=== PATIENT | male | born 2000 | race Caucasian/White ===

== ENCOUNTER 2022-09-25 01:51 | Emergency (ER) | payer MEDICAID, SELFPAY ==
[2022-09-25 01:59] VITALS: PULSE 88; RESP 16; TEMP 36.3; O2SAT 100; BMI 27.5
--- NOTE | 2022-09-25 02:00 | ED_ITS ---
HPI - General Adult General: Chief complaint: General Medical Stated complaint: G TUBE PROBLEMS Time Seen by Provider: 09/25/22 01:56 Source: family and EMS Mode of arrival: EMS Limitations: physical limitation History of Present Illness: 21-year-old male has a history of being bedbound he is nonverbal he depends on tube feedings he has a G-tube that per family they are transferring and it got caught and pulled out he seen at [facility] they do not have an NG tube I did place a Amaral in place and transferred here for G-tube placement no other complaints at this time Review of Systems General: Reports: ROS unobtainable due to mental status PFSH ED PFSH: Social History (Updated 09/25/22 @ 02:00 by Josie Del Rio MD) Substance/Drug Use: never Physical Exam Const: COMMON NORMALS: no acute distress; negative for patient oriented x3 HENMT: COMMON NORMALS: normocephalic HEAD & SCALP: normocephalic Eye: COMMON NORMALS: conjunctivae normal CONJUNCTIVA: Yes conjunctivae normal Neck/C-Spine: COMMON NORMALS: supple Chest: COMMONS NORMALS: normal inspection of the chest Resp: COMMON NORMALS: normal respiratory effort GI: OTHER: Amaral catheter in place at the G-tube site Extremity: COMMON NORMALS: normal to inspection Neuro: COMMON NORMALS: negative for patient oriented x3 Procedures Feeding Tube Replacement Type of Tube: gastrostomy Insertion Site Prior to Procedure: clean Tube Used for Reinsertion: other (g tube) Italian Tube Size (F): 20 Balloon size (mL): 10 Verification of Placement: KUB and gastrografin injection Tube Secured by: tape/dressing Patient Tolerated Procedure: well Course Vital Signs: Vital signs: Vital Signs Temperature 97.3 F L 09/25/22 01:59 Pulse Rate 76 09/25/22 02:05 Respiratory Rate 16 09/25/22 01:59 Blood Pressure 103/72 09/25/22 02:05 Pulse Oximetry 96 09/25/22 02:05 Oxygen Delivery Me thod Trach Collar 09/25/22 02:05 Oxygen Flow Rate 5 09/25/22 01:59 MDM - General Adult Medical Decision Making Patient presents here with dislodged G-tube I did place another G-tube without any difficulty. Patient tolerated well x-ray KUB shows that in place. He is stable for discharge. Discharge Plan Discharge Patient Disposition: Home Clinical Impression: Gastrojejunostomy tube dislodgement Discharge Orders: Discharge ED (Routine); Ordered 09/25/22 Ordered By: Josie Del Rio Discharge Diet: Advance as tolerated Discharge Activity: Resume usual activity Patient Instructions: Tube Feeding (DC) Coding Level of Care Code ED Gang Drill Operator for Leroy Talavera
[2022-09-25 02:05] VITALS: BP 103/72; PULSE 76; O2SAT 96
--- NOTE | 2022-09-25 02:06 | XRR_ITS ---
PROCEDURE INFORMATION: Exam: XR Abdomen Exam date and time: 09/25/2022 2:24 AM Age: 21 years old Clinical indication: Device placement; Gi device; Gastrostomy, other; Additional info: G tube placement, contrast TECHNIQUE: Imaging protocol: Radiologic exam of the abdomen. Views: Frontal supine view of the abdomen. 1 View. Other contrast: Oral, GASTROVIEW, 100; COMPARISON: No relevant prior studies available. FINDINGS: Tubes, catheters and devices: A gastrostomy tube projects on the stomach. Contrast material is present within the stomach and proximal small bowel. There is no evidence of leak. Gastrointestinal tract: No evidence of obstruction. Bones/joints: Unremarkable. XR/XR KUB [id number] IMPRESSION: Satisfactory position of the gastrostomy tube in the stomach with no evidence of leak.
[2022-09-25 03:29] VITALS: BP 112/73; PULSE 75; RESP 18; O2SAT 100
[2022-09-25] MEDS: diatrizoate meglumine 120 mL Sol PO (04:01)
--- NOTE | 2022-09-25 04:06 | PC.NURSE ---
JAZLYN ride scheduled to EMS for transport back home. Pts family notified that it will be 0800 before they arive. Trip # [id number].
[2022-09-25 07:30] VITALS: BP 108/77; PULSE 84; O2SAT 99
[2022-09-25 09:00] VITALS: BP 93/74; PULSE 90; O2SAT 98
[2022-09-25 09:34] VITALS: BP 104/66; PULSE 92; O2SAT 100
--- NOTE | 2022-09-29 14:53 | DCPLANNER ---
manager service desk called patient due to no primary care physician - case assistant spoke with patients father who stated that patient sees Rozina Joaquin at [facility].
== END 2022-09-25 09:36 | disposition home or self-care (01) ==
PROVIDERS: Emergency Provider Emergency Medicine; PCP Family Medicine
DX: Z43.1 Encounter for attention to gastrostomy (principal); Z74.01 Bed confinement status
CPT/HCPCS: 74018; 99283; Q9963

== ENCOUNTER → 2024-12-04 11:31 | Outpatient (BNVA) | payer MEDICAID, SELFPAY | PROVIDERS: PCP Family Medicine; Visit Provider Student in an Organized Health Care Education/Training Program | DX: Z93.1 Gastrostomy status (principal) | CPT/HCPCS: 43762; 99204 ==